=== PATIENT | male | born 1985 | race Caucasian/White ===

== ENCOUNTER 2024-08-03 07:11 | Emergency (ER) | payer BC ==
[2024-08-03 07:16] VITALS: RESP 18
--- NOTE | 2024-08-03 07:42 | ED ---
Lower Extremity Injury HPI - General Chief Complaint: Extremity Injury, Lower Stated Complaint: Left lower leg and foot pain Time Seen by Provider: 08/03/24 07:14 Source: patient, RN notes reviewed Mode of arrival: wheelchair Limitations: no limitations - History of Present Illness Initial Comments: Patient is a 38 year old male who presents with left ankle and leg pain since last night. He states that he was getting out of his work truck and "twisted" his ankle and fell. He states that EMS was called but he denied because the pain was "not that bad", bt says the pain is now a 8/10. He states that he had to cut his work boot off due to the pain and had not taken his sock off at all. He states that the pain is with "moving his foot side to side", and it is moving "to the back of his calf and zimmerman". He notes he is unable to bear any weight and that the pain is worse with elevation. He denies hitting his head, numbness,tingling, hip pain, knee pain, SOB, back pain, or chest pain. - Related Data Previous Rx's Medication Instructions Recorded HYDROcodone/APAP 7.5-325MG [Decker 1 tab PO Q6HR PRN 3 Days #12 tab 08/03/24 7.5-325] Allergies Allergy/AdvReac Type Severity Reaction Status Date / Time No Known Allergies Allergy Verified 08/03/24 07:17 Review of Systems ROS Statement: Those systems with pertinent positive or pertinent negative responses have been documented in the HPI. ROS Other: All systems not noted in ROS Statement are negative. Past Medical History Past Medical History: No Reported History History of Any Multi-Drug Resistant Organisms: None Reported Past Surgical History: No Surgical Hx Reported Past Psychological History: Anxiety Smoking Status: Never smoker Past Alcohol Use History: Occasional Past Drug Use History: None Reported General Exam Limitations: no limitations General appearance: alert, anxious, in distress Head exam: Present: atraumatic, normocephalic, normal inspection Respiratory exam: Present: normal lung sounds bilaterally. Absent: respiratory distress, wheezes, rales, rhonchi, stridor Cardiovascular Exam: Present: regular rate, normal rhythm, normal heart sounds. Absent: systolic murmur, diastolic murmur, rubs, gallop, clicks Left Hip exam: Present: normal inspection, full ROM Upper Leg exam: Present: normal inspection, full ROM Knee exam: Present: normal inspection, full ROM Lower Leg exam: Present: tenderness, swelling, ecchymosis, deformity, erythema. Absent: full ROM Ankle exam: Present: tenderness, swelling. Absent: full ROM Foot/Toe exam: Present: full ROM, tenderness Neurovascular tendon exam: Present: no vascular compromise Gait: unable to bear weight Back exam: Present: normal inspection, full ROM Neurological exam: Present: alert, oriented X3, CN II-XII intact Skin exam: Present: warm, dry, intact, normal color. Absent: rash Course Vital Signs 08/03/24 08/03/24 07:13 09:20 Temperature 98 F 98.1 F Pulse Rate 81 105 H Respiratory 18 18 Rate Blood Pressure 150/88 155/80 O2 Sat by Pulse 94 L 97 Oximetry Procedures - Orthopedic Splinting/Casting Injury #1 Side: right Lower Extremity Injury Location: short leg, ankle Lower Extremity Immobilizer: posterior splint, stirrup splint, synthetic pre-padded splint Other Orthopedic Equipment: crutches Medical Decision Making - Medical Decision Making Was pt. sent in by a medical professional or institution (, PA, EXTRUSION SUPERVISOR, urgent care, hospital, or custodial...) When possible be specific @ -No Did you speak to anyone other than the patient for history (EMS, parent, family, police, friend...)? What history was obtained from this source @ -No Did you review nursing and triage notes (agree or disagree)? Why? @ -I reviewed and agree with nursing and triage notes Were old charts reviewed (outside hosp., previous admission, EMS record, old EKG, old radiological studies, urgent care reports/EKG's, custodial records)? Report findings @ -No old charts were reviewed Differential Diagnosis (chest pain, altered mental status, abdominal pain women, abdominal pain men, vaginal bleeding, weakness, fever, dyspnea, syncope, headache, dizziness, GI bleed, back pain, seizure, CVA, palpatations, mental health, musculoskeletal)? @ -Leg fracture, leg sprain EKG interpreted by me (3pts min.). @ -None X-rays interpreted by me (1pt min.). @X-rays r left ankle showing distal tibia shaft fracture spiral X-ray tib-fib left showing proximal fibular fracture with distal tibia spiral shaft fracture CT interpreted by me (1pt min.). @ -None done U/S interpreted by me (1pt. min.). @ -None done What testing was considered but not performed or refused? (CT, X-rays, U/S, labs)? Why? @ -None What meds were considered but not given or refused? Why? @ -None Did you discuss the management of the patient with other professionals (professionals i.e. DrTorsten, PA, EXTRUSION SUPERVISOR, lab, RT, psych nurse, social sciences research scientist, neon sign worker, teacher, annual giving officer, showcase maker)? Give summary @ -Discussed case with Dr. Gage on-call orthopedics recommends patient be transferred to traumatologist. Was smoking cessation discussed for >3mins.? @ -No Was critical care preformed (if so, how long)? @ -No Were there social determinants of health that impacted care today? How? (Homelessness, low income, unemployed, alcoholism, drug addiction, transportation, low edu. Level, literacy, decrease access to med. care, retirement, rehab)? @ -No Was there de-escalation of care discussed even if they declined (Discuss DNR or withdrawal of care, Hospice)? DNR status @ -No What co-morbidities impacted this encounter? (DM, HTN, Smoking, COPD, CAD, Cancer, CVA, ARF, Chemo, Hep., AIDS, mental health diagnosis, sleep apnea, morbid obesity)? @ -None Was patient admitted / discharged? Hospital course, mention meds given and rou te, prescriptions, significant lab abnormalities, going to OR and other pertinent info. @ -Discharge patient updated on orthopedics recommendations CV transfusion requirement home patient states he is here and work from out of town and prefers to go back home towards [place] [facility] now. He does understand the risk of leaving he is clearly splinted he is neurovascular intact and provided crutches advised he cannot put any weight on his leg. Undiagnosed new problem with uncertain prognosis? @ -No Drug Therapy requiring intensive monitoring for toxicity (Heparin, Nitro, Insulin, Cardizem)? @ -No Were any procedures done? @ -Splinting Diagnosis/symptom? @ -Left leg fracture distal tib, proximal fibular Acute, or Chronic, or Acute on Chronic? @ -Acute Uncomplicated (without systemic symptoms) or Complicated (systemic symptoms)? @ -uncomplicated Side effects of treatment? @ -No Exacerbation, Progression, or Severe Exacerbation? @ -No Poses a threat to life or bodily function? How? (Chest pain, [place], [place], pneumonia, PE, COPD, DKA, ARF, appy, cholecystitis, CVA, Diverticulitis, Homicidal, Suicidal, threat to staff... and all critical care pts) @ -No Disposition Clinical Impression: Displaced spiral fracture of shaft of left tibia, Fracture of proximal end of fibula Disposition: HOME SELF-CARE Condition: Stable Instructions (If sedation given, give patient instructions): Leg Fracture (ED) Additional Instructions: Please return to the Emergency Department if symptoms worsen or any other concerns. Prescriptions: HYDROcodone/APAP 7.5-325MG [Decker 7.5-325] 1 tab PO Q6HR PRN 3 Days #12 tab PRN Reason: pain Is patient prescribed a controlled substance at d/c from ED?: Yes When asked, does pt state using other controlled substances?: No If prescribed controlled substance>3 days was MAPS reviewed?: Prescribed <3 Days If opioid is for acute pain is fill amount 7 days or less?: Yes If Rx opioid, was Start Talking consent form obtained?: Yes Referrals: None,Stated [Primary Care Provider] - 1-2 days Time of Disposition: 08:41
[2024-08-03] MEDS: KETOROLAC 15 MG/ML 1 ML VIAL IM STA (07:43)
--- NOTE | 2024-08-03 08:06 | XR ---
EXAMINATION TYPE: XR ankle limited LT, XR tibia fibula LT DATE OF EXAM: 08/03/2024 8:01 AM COMPARISON: None CLINICAL INDICATION: Male, 38 years old with history of injury; PHH, pain TECHNIQUE: XR ankle limited LT, XR tibia fibula LT; frontal, lateral projections of the leg and ank le FINDINGS/IMPRESSION: Acute spiral fracture of the distal tibia diaphysis and proximal fibula diaphysis. There is posterior dislocation of the fracture site of the tibia and anterior dislocation of the fibula. Associated sof t tissue swelling. [facility], , 08/03/2024 8:03 AM
[2024-08-03] MEDS: HYDROmorphone 1 MG/ML 1 ML SYRINGE IM STA (08:58)
[2024-08-03] MEDS: HYDROcodone/APAP 7.5-325MG 1 EACH TAB PO ONE (08:59)
[2024-08-03 09:21] VITALS: BP 155/80; PULSE 105; TEMP 98.1
== END 2024-08-03 09:21 | disposition home or self-care (01) ==
LOC: EC 07:11
DX: S82.242A Displaced spiral fracture of shaft of left tibia, initial encounter for closed fracture (principal); S82.832A Other fracture of upper and lower end of left fibula, initial encounter for closed fracture; W17.89XA Other fall from one level to another, initial encounter; X50.1XXA Overexertion from prolonged static or awkward postures, initial encounter
CPT/HCPCS: 29515 ×2; 99283 ×2; 96372 ×3; 73590; 73600; J1171; J1885